=== PATIENT | female | born 1960 | race African-American/Black ===

== ENCOUNTER → 2019-01-06 | Outpatient (CLI) | payer OTHER ==
--- NOTE | 2019-01-07 07:07 | PAIN ---
DATE OF SERVICE: 01/06/2019 INITIAL CONSULTATION FOR PAIN CLINIC CHIEF COMPLAINT: Bilateral knee joint pain. HISTORY OF PRESENT ILLNESS: This is a 58-year-old female who presents with history of pain in the bilateral knees for about 6 months, not a result of any specific injury or action that she is aware of, increasing with time and weightbearing, but only with getting up from a seated position and getting into a seated position from standing as well as climbing upstairs or steps with putting all her weight on her right or left leg. The patient reports they are equal right and left with pain, one is not worse than the other. When she is walking now after she is up and around, the pain is very minimal. The patient reports she has not had any treatment for it, no therapies, no evaluation as far as Orthopedics and no medical treatment other than [id number] Tylenol, which is only helping mildly. The patient reports that the Motrin does help more, but she has only been taking Tylenol lately. The patient reports the pain is constant, aching, grinding, also dull and shooting at times into the lower extremities, but mostly in the knees themselves, again right equal to left. The patient reports it awakens her from sleep at least twice a night. The patient reports she is lying on her left side. The patient reports it does not affect her bowel or bladder control, but does affect her ability to walk when she is climbing stairs or steps, again worse with putting weight on her knees when getting up from a seated position and getting into a seated position from standing. The patient has had no current x-rays or other diagnostic studies on her knees at this time. PAST MEDICAL HISTORY: Significant for type 2 diabetes, hypothyroidism, hypertension, bronchitis, cigarette smoking, history of rectal bleeding, obesity, depression, anxiety, cystocele, alcoholism, osteoarthritis. PREVIOUS SURGERY: Include appendectomy, cholecystectomy, ankle fusion on the right, thyroidectomy, and left oophorectomy. CURRENT MEDICATIONS: Include amlodipine, bupropion, Glucophage, Cozaar, fish oil, iron, vitamin C, Singulair inhaler, Bystolic, oxybutynin, Synthroid, and Fosamax. ALLERGIES: THE PATIENT IS ALLERGIC TO LISINOPRIL AND KEFLEX. FAMILY HISTORY: Significant for no major medical problems or conditions that she is aware of. SOCIAL HISTORY: The patient smokes one-half to one pack a day, has for many years. Does not drink alcohol, is not using illegal, illicit or recreational drugs. She is , lives with her spouse, has 2 children living at home, lives locally in [place], [place]. REVIEW OF SYSTEMS: The patient's review of systems is positive for those items mentioned in history of present illness. All systems reviewed and otherwise negative. It is complete, full and well documented on the patient's chart. PHYSICAL EXAMINATION: VITAL SIGNS: The patient's blood pressure is 141/95, pulse 62, respirations 16, temperature 98.4 degrees Fahrenheit, height is 5 feet 3 inches, weight is 288 pounds. GENERAL: The patient is awake, alert, oriented, appropriate, very pleasant demeanor. HEENT: Shows normocephalic, atraumatic. Extraocular movements are intact and symmetrical. Oral cavity: Mucous membranes moist and pink. Dentition is intact. NECK: Shows anterior throat supple without palpable lymphadenopathy noted. Swallow reflex symmetrical. CHEST: Shows normal on inspection. Breath sounds are clear to auscultation bilaterally. HEART: Shows S1, S2 clear. No murmurs auscultated. ABDOMEN: Soft, obese, nontender, nondistended. No palpable organomegaly is noted. No rebound or guarding demonstrated. BACK: Shows spine grossly in the midline, slight exaggerated thoracic kyphosis, some minor flattening of lumbar lordotic curvature. Lumbar paraspinous muscle shows symmetrical on inspection and palpation shows some mild tenderness in the low lumbar distribution diffusely in the lumbar paraspinous muscles, but only in the low lumbar distribution without radiation. The patient has good rotational motion of lumbar spine, both laterally as well as extension and flexion without difficulty. EXTREMITIES: Lower extremities show deep tendon reflexes at 1+ in the patellar and tendo calcaneus tendons are equal. Motor exam is strong with 5/5 dorsiflexion, extension, quadriceps and hamstring flexion. Peripheral pulses are 1+ posterior tibia. No peripheral edema is noted bilaterally. Lower extremities are warm and dry to touch, equal in color and appearance. The patient's knee shows good range of motion both actively and passively without ratcheting without crepitus. There is some mild tenderness in the medial and lateral compartment of the patellar tendon, but only very mildly with deep palpation. No tenderness in the popliteal fossa. Popliteal pulses are easily palpable at 2+ bilaterally. No tenderness over the medial collateral ligaments or lateral collateral ligament with deep palpation as well. The patient is able to stand, but indeed reports pain with standing from a seated position and the knees when she is standing up, the pain has decreased. The patient is walking with a slight antalgic gait, appears to favor the right lower extremity greater than the left, but is not using any assistive devices such as walkers or canes to ambulate. Reports no significant pain with ambulation. The patient's skin shows warm and dry, good turgor. No edema. No sores, rashes or bruising throughout. IMPRESSION: 1. This is a 58-year-old female with about 6-month history of increasing pain, bilateral knees. 2. History of arthritis. 3. Hypertension. 4. Diabetes. PLAN: Options were discussed with the patient including conservative medical management, physical therapies, interventional techniques and we will start with the diagnostic conservative approach. We will attempt to obtain any x-rays that may have been performed on the patient's knees in the recent past. Also discussed oral naproxen 500 mg twice daily with instructions, side effects to be aware of discussed, and if not significantly improved we will order water therapy and/or x-rays of the knees if none are already performed. If not significantly improved after all these modalities, we will consider orthopedic evaluation. The patient understands and agrees, will follow up after 1 month with naproxen therapy 500 mg b.i.d. Again, the patient was given instruction as well as side effects with the medication and will follow up as scheduled. DILIA COOL MD DR: KIM/will JOB#: [id number] / [id number] GINO Godfrey MD
== END | disposition home or self-care (01) ==
LOC: PNCL 11:18
PROVIDERS: ATTEND Anesthesiology
DX: M25.562 Pain in left knee (principal); M25.561 Pain in right knee; I10 Essential (primary) hypertension; E11.9 Type 2 diabetes mellitus without complications; E03.9 Hypothyroidism, unspecified; F17.200 Nicotine dependence, unspecified, uncomplicated; E66.9 Obesity, unspecified; F32.9 Major depressive disorder, single episode, unspecified; F41.9 Anxiety disorder, unspecified; M19.90 Unspecified osteoarthritis, unspecified site; Z90.49 Acquired absence of other specified parts of digestive tract; Z90.89 Acquired absence of other organs; Z90.721 Acquired absence of ovaries, unilateral; Z79.84 Long term (current) use of oral hypoglycemic drugs; Z79.899 Other long term (current) drug therapy; Z79.891 Long term (current) use of opiate analgesic; Z88.8 Allergy status to other drugs, medicaments and biological substances
CPT/HCPCS: G0463